=== PATIENT | male | born 1980 | race Caucasian/White ===

== ENCOUNTER → 2021-07-28 08:30 | Outpatient (BNVA) | payer OTHER, SELFPAY | PROVIDERS: PCP Nurse Practitioner Family; Visit Provider Nurse Practitioner Family | DX: R53.83 Other fatigue (principal); Z13.6 Encounter for screening for cardiovascular disorders; Z79.899 Other long term (current) drug therapy; E55.9 Vitamin D deficiency, unspecified | CPT/HCPCS: 80053; 80061; 81003; 82306; 83036; 83721; 84439; 84443; 85025 ==

== ENCOUNTER → 2022-03-22 08:26 | Outpatient (BNVA) | payer OTHER, SELFPAY | PROVIDERS: PCP Nurse Practitioner Family; Visit Provider Nurse Practitioner Family | DX: S62.501A Fracture of unspecified phalanx of right thumb, initial encounter for closed fracture (principal); X58.XXXA Exposure to other specified factors, initial encounter | CPT/HCPCS: 73120 ==

== ENCOUNTER → 2022-11-08 16:07 | Outpatient (BNVA) | payer OTHER, SELFPAY | PROVIDERS: PCP Nurse Practitioner Family; Visit Provider Family Medicine | DX: R07.9 Chest pain, unspecified (principal); I10 Essential (primary) hypertension; Z00.00 Encounter for general adult medical examination without abnormal findings | CPT/HCPCS: 80053; 80061; 84443; 85025 ==

== ENCOUNTER 2023-02-12 07:23 | Outpatient (CLI) | payer OTHER, SELFPAY ==
--- NOTE | 2023-02-12 12:00 | USCV_ITS ---
Abad Sexton Age: 42 Gender: M : 1980 Exam Date: 02/12/2023 08:00 Ordering Phys: Polo Howard MD Technologist: Jhony Rosenberg [place] [facility] [place]: chest pain BP: 110 / 64 HR: 64 Rhythm: Sinus Technical Quality: Adequate MEASUREMENTS (Male / Female) Normal Values 2D ECHO LVOT Diameter 2.1 cm LV Ejection Fraction MOD 2C 61.9 % LV Ejection Fraction 2C AL 62.2 % LA Diameter 3.4 cm LA Width 3.2 cm LA Height 5.5 cm RA Width 2.7 cm RA Height 5.6 cm Aorta at Sinotubular Diameter 2.5 cm IVC Diameter 1.8 cm M-MODE Aortic Annulus Diameter 2.6 cm LA Ao Ratio MM 1.3 MV E Point Septal Separation 0.5 cm DOPPLER AV Peak Velocity 131.3 cm/s LVOT Peak Velocity 97.0 cm/s AV Area Cont Eq vti 2.6 cm squared AV Area Cont Eq pk 2.5 cm squared MV Peak Velocity 81.0 cm/s MV Area PHT 5.1 cm squared Mitral E to A Ratio 1.1 MV E' Velocity 44.0 cm/s Mitral E to MV E' Ratio 6.8 Mitral E to LV E' Lateral Ratio 5.6 Mitral E to LV E' Septal Ratio 8.6 TR Peak Velocity 225.3 cm/s TR Peak Gradient 20.3 mmHg TR Mean Velocity 175.9 cm/s TR Mean Gradient 12.9 mmHg TR Velocity Time Integral 56.7 cm Right Atrial Pressure 3.0 mmHg Pulmonary Artery Systolic Pressu 23.3 mmHg PV Peak Velocity 110.3 cm/s RV Acceleration Time 0.1 s RV Ejection Time 0.3 s RV AcT/ET 0.3 FINDINGS Left Ventricle Left ventricle is normal in size. LV systolic function is normal with EF of 60 to 65%. No regional wall motion abnormalities are seen. Diastolic function is normal Right Ventricle Normal in size and function Right Atrium Normal in size Left Atrium Normal in size Mitral Valve Structurally normal mitral valve. Mild mitral regurgitation. Aortic Valve Structurally normal aortic valve. No significant stenosis or regurgitation. Tricuspid Valve Mild tricuspid regurgitation. Insufficient TR jet to calculate RVSP. Pulmonic Valve Not well-visualized. Pericardium Normal Aorta Normal in size IVC Appears to be normal CONCLUSIONS LV systolic function is normal with EF of 60 to 65%. Diastolic function is normal. Mild mitral regurgitation Mild tricuspid regurgitation No comparison studies are available Antonio Lambert MD (Electronically Signed) Final Date: 16 Feb 2023 14:33 S
== END 2023-02-12 07:24 | disposition home or self-care (01) ==
LOC: RAD 07:27
PROVIDERS: PCP Family Medicine; Visit Provider Family Medicine
DX: R07.9 Chest pain, unspecified (principal); I08.1 Rheumatic disorders of both mitral and tricuspid valves
CPT/HCPCS: 93306

== ENCOUNTER 2023-02-13 11:42 | Outpatient (CLI) | payer OTHER, SELFPAY ==
--- NOTE | 2023-02-13 | ECG_ITS ---
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 Interpretive Statements NAME OF STUDY: TREADMILL STRESS TEST INDICATION: [Shortness of Breath] EXERCISE DATA: The patient was exercised by Tawanda protocol. Baseline heart rate was 70 beats per minute. Baseline blood pressure was 116/72 millimeters of mercury. Maximum predicted heart rate was 176 bpm. Maximum heart rate achieved was 176 which was 100% of the maximum predicted heart rate. Maximum blood pressure was 179/76 millimeters of mercury. Total exercise time was 10 minutes 56 seconds. Maximum METs achieved was 13.5. The reason for ending the test was maximal effort achieved. The patient complained of shortness of breath during the stress test, which then resolved at the end of the test. ELECTROCARDIOGRAM: BASELINE: Showed sinus rhythm, normal axis, no significant ST-T changes at the baseline noted. [] EXERCISE: At the peak exercise level, [] No significant ST-T changes suggestive of ischemia noted. [] RECOVERY: During the recovery period, heart rate dropped appropriately. No significant ST-T changes in the recovery suggestive of ischemia noted. [] CONCLUSION: 1. Exercise capacity excellent 2. Heart rate response was appropriate. 3. Blood pressure response was appropriate. 4. Symptoms not suggestive of ischemia. 5. Stress test negative for ischemia. Electronically Signed On 02-14-2023 13:17:15 CDT by Antonio Lambert M.D. [email or web address]
[2023-02-13 12:01] VITALS: BMI 28.6
[2023-02-13 12:55] VITALS: BP 133/68; PULSE 90
== END 2023-02-13 11:43 | disposition home or self-care (01) ==
LOC: CDL 11:43
PROVIDERS: PCP Family Medicine; Visit Provider Family Medicine
DX: R07.9 Chest pain, unspecified (principal); R06.02 Shortness of breath
CPT/HCPCS: 93017

== ENCOUNTER → 2023-02-14 12:25 | Outpatient (BNVA) | payer OTHER, SELFPAY | PROVIDERS: PCP Family Medicine; Visit Provider Internal Medicine | DX: R07.9 Chest pain, unspecified (principal); I10 Essential (primary) hypertension; E78.1 Pure hyperglyceridemia; R94.31 Abnormal electrocardiogram [ECG] [EKG]; Z87.891 Personal history of nicotine dependence | CPT/HCPCS: 93005; 99204 ==

== ENCOUNTER → 2023-09-19 13:23 | Outpatient (BNVA) | payer OTHER, SELFPAY | PROVIDERS: PCP Family Medicine; Visit Provider Nurse Practitioner Family | DX: R07.89 Other chest pain (principal); I10 Essential (primary) hypertension; E78.1 Pure hyperglyceridemia; R68.89 Other general symptoms and signs; R06.09 Other forms of dyspnea; Z82.49 Family history of ischemic heart disease and other diseases of the circulatory system; Z87.891 Personal history of nicotine dependence; Z79.82 Long term (current) use of aspirin | CPT/HCPCS: 36415; 80048; 80061; 85025; 85610; 99214 ==

== ENCOUNTER 2023-11-12 05:59 | Outpatient (CLI) | payer OTHER, SELFPAY ==
[2023-11-12] MEDS: diphenhydrAMINE 50 mg Capsule PO (06:20)
[2023-11-12 06:21] LABS: Basophils # 0.1 10^3/uL (0.0-0.1); Basophils % 0.5 %; Eosinophils # 0.1 10^3/uL (0.0-0.8); Eosinophils % 1.4 %; Hematocrit 45.8 % (37-53); Lymphocytes # 3.3 10^3/uL (0.8-4.8); Lymphocytes % 34.8 %; Mean Corpuscular HGB Conc 32.5 g/dL (30-55); Mean Corpuscular Hemoglobin 29.3 pg (27-33); Mean Platelet Volume 10.3 fL (7.4-10.4); Monocytes # 0.5 10^3/uL (0.2-0.9); Monocytes % 5.4 %; Neutrophils % 57.8 %; Nucleated Red Blood Cells % 0 %; Platelet Count 341 10^3/cmm (157-399); Red Blood Count 5.09 10^6/uL (3.85-5.65); Red Cell Distribution Width 12.5 % (12.1-15.1); White Blood Count 9.34 10^3/uL (3.29-11.43)
[2023-11-12 06:26] VITALS: BP 127/80; PULSE 56; RESP 18; TEMP 36.8; O2SAT 97; BMI 30.3
[2023-11-12 06:40] LABS: Anion Gap 14.6 (5-19); Blood Urea Nitrogen 13 mg/dL (6-20); Calcium 9.4 mg/dL (8.5-10.5); Carbon Dioxide 28 mmol/L (22-29); Chloride 103 mmol/L (98-107); Creatinine Clr Calc Pharmacy 107.5592; Glomerular Filtration Rate 72.4 mL/min (90-130); Glucose 112 mg/dL (65-115); Osmolality Calculated 293 mOsm/kg (285-295); Potassium 4.6 mmol/L (3.5-5.1); Sodium 141 mmol/L (136-145)
--- NOTE | 2023-11-12 07:00 | XACV_ITS ---
Exam Room: 2 Ht: 185 cm Wt: 104 kg BSA: 2.34 m2 Gender: Male : 1980 Any Known Allergies: No known allergies Exam Priority: Routine Indication(s): - Chest pain Procedure(s): Procedure Description: Diagnostic procedure Procedure Description: Left Heart Catheterization Procedure Description: Coronary Angiography Procedure Description: Pressure Wire Diagnostic Cath Status: Elective Diagnostic Findings * INDICATION: 43-year-old man with past medical history of hypertension, hyperlipidemia who has been having worsening shortness of breath and chest discomfort episodes. He had a stress test that did not show significant ischemia however given worsening symptoms, plan for coronary angiogram with possible PCI. * Left Main has no significant disease. * Circumflex has no significant disease. * Distal Right Coronary Artery: moderate 40- 50% stenosis, ZHANG: 3 flow. * Proximal Left Anterior Descending: minimal 30% stenosis, ZHANG: 3 flow. * Coronary angiography shows right dominance. Interventional Findings * PROCEDURE DETAIL: We engaged the RCA with JR4 guide catheter. IV heparin was administered to maintain anticoagulation. After normalization, IFR wire was advanced into the distal vessel. IFR of the distal RCA was obtained and was 1.0. As it was nonsignificant, pressure wire and guide catheter were removed. 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 Conclusions 1. Moderate distal RCA stenosis s/p IFR that is nonischemic. Medical therapy. 2. Normal left ventricular systolic function. Ejection fraction of 60%. Recommendations * Aggressive risk factor modification. * Outpatient cardiology follow up in 2-4 weeks. Interventional RX Recommendation: medical therapy and/or counseling Diagnostic RX Recommendation: medical therapy and/or counseling Anticoagulation: Heparin Ventriculography Ejection Fraction: 60.0 % Pressures Phase:Rest AO : 101 / 66 ( 84 ) @ 8:02:00 AM 121 / 70 ( 91 ) @ 8:08:00 AM 121 / 70 ( 91 ) @ 8:08:00 AM 111 / 76 ( 94 ) @ 8:16:00 AM LV : 135 / 0 / 24 @ 8:07:00 AM 136 / 3 / 31 @ 8:08:00 AM 135 / 4 / 30 @ 8:08:00 AM Valves Phase:DefaultPhase AV : 14.0 @ 8:23:35 AM 14.0 @ 8:23:35 AM AV Mean Gradient: 10.0 @ 8:23:35 AM 10.0 @ 8:23:35 AM Clinical Evaluation EBL: 5mL-10mL Procedural Details Procedure Consent Obtained. Pre-Procedure Time Out. Identified patient by full name and date of as verbalized by the patient/guarantor. Does the consent match the physician's order: Yes. Accurate & Complete Informed Consent: Yes. Inpatient/Outpatient History & Physical on Chart: Yes. If H&P is completed, is and addenduem needed: No; If yes, is the addendum complete: N/A. Visualize and Verify Site with Patient/Guarantor: N/A. Relevant Radiology Images available: N/A. Pre-op teaching completed and patient verbalized understanding. The risks, benefits, and alternatives of sedation and/or procedure were discussed by physician. The patient agrees to continue. Procedure started. [facility] Clinical Fraility Score: 3: Managing Well. Sales Director Indications: Worsening Angina. Chest Pain Symptom Assessment: Typical Angina Symptoms. Cardiovascular Instability: Yes, if yes, Persistant Ischemic Symptoms. Correct patient, site and procedure confirmed by cath team. Current diagnosis: Chest Pain. PERRLA. 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 Lungs clear x 5 lobes. IV Site on Arrival: 20 gauge in the left anticubital. IV Fluids: 0.9% NaCl at KVO. 0 mL infused prior to catheter finisher and inspector. Pre Procedural Pulses: bilateral posterior tibial was 3+. Pre Procedural Pulses: bilateral radial was 3+. Pre Procedural Pulses: bilateral dorsalis pedis was 3+. Oxygen started at 2liters/min via nasal canula. right groin was prepped with chloroprep then draped in the usual sterile fashion. right radial was prepped with chloroprep then draped in the usual sterile fashion. Physician notified. Baseline sample Acquired. HR: 54 BPM. Physician arrived. Physician scrubbed in. Immediate Pre-Procedure Time Out. Correct Patient: Yes; Correct Procedure: Yes; Correct Site: Yes; Correct Patient Position: Yes; Correct Supplies: Yes; Dried Flammable Prep: Yes; Blood Products Available: N/A;. Lidocaine 1% infiltrated to the right radial. Admit Source: Out Patient. Arterial access obtained. A 5 greenlandic TIG catheter in over wire. Multiple views taken of left coronary artery. Catheter redirected to the RCA. Catheter removed over the exchange wire. A 5 greenlandic Angled Pig catheter in over wire. EDP Sample taken: LV 135/0,24; HR: 55 BPM; SpO2: 99%. LV gram performed in JULIEN @ 10 mL/second for a total of 30 mL. EDP Sample taken: LV 136/3,31; HR: 57 BPM; SpO2: 99%. Pullback taken: LV 135/4,30; AO 121/70(91); Mean: 10mmHg, Peak to Peak: 14mmHg, SEP: 14sec/min; HR: 55 BPM; SpO2: 98%. Catheter removed over the exchange wire. Pigtail advanced across the LV. 6 greenlandic JR 4 guide catheter was inserted over the wire. IFR guidewire was advanced through the guide catheter to lesion in the distal RCA. Flow reserve measurements obtained, IFR spot of Distal RCA 1.0. IFR wire removed. Guide catheter out. Physician scrubbed out. A TR Band was successful obtaining hemostatsis at the Right Radial artery insertion site. Post Procedure: Pulses reassessed and unchanged. PERRLA. 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 No VTE prophylaxis required. Medication's Wasted: Heparin = 1000 u. Medication's Wasted: Other = Fentanyl 75 mcg. Medication's Wasted: Nitro = 49.8 mg. Post-op diagnosis: Moderate Distal RCA stenosis. Medication's Wasted: Lidocaine 1% = 3 mL. Total IV fluids: 50 mL. Complications: none. Estimated blood loss: 5mL-10mL. Responsiveness - Normal response to verbal stimuli; alert and oriented, PERRLA. Airway - Unaffected, no intervention required; spontaneous ventilation. Circulation: W/N/L, pulses unchanged. Nausea/Vomiting: No. Procedure completed. Patient transferred by wheelchair to 1st floor. Vital chart was stopped. Access Site Site: Right Radial artery Sheath Size: 6 Fr Hemostasis Method: TR Band Hemostasis Success: Successful Procedure Medications Start: 7:53 AM Stop: 7:53 AM Medication: Versed Amount: 1 mg Route: I.V. Start: 7:53 AM Stop: 7:53 AM Medication: Fentanyl Amount: 25 mcg Route: I.V. Start: 7:59 AM Stop: 7:59 AM Medication: Nitrogylcerin Amount: 200 mcg Route: I.A. Start: 8:00 AM Stop: 8:00 AM Medication: Heparin Amount: 5000 units Route: I.V. Start: 8:08 AM Stop: 8:08 AM Medication: Heparin Amount: 5000 units Route: I.V. Start: 8:12 AM Stop: 8:12 AM Medication: Versed Amount: 1 mg Route: I.V. I, the attending physician, have reviewed and verified all procedure medications. Yes, all medications given per verbal order History/Risk Factors Hypertension: Yes Dyslipidemia: Yes Peripheral Arterial Disease (PAD): No Myocardial Infarction (TX): No Obesity: No Renal Disease: No Tobacco Use: Former Prior Interventions PCI: No CABG: No Valve Surgery: No Report Signatures Finalized by Antonio Lambert MD on 11/18/2023 11:15 AM
--- NOTE | 2023-11-12 07:52 | W.PM.OPSFHP ---
Same Day Surgery H&P Indication for Procedure/HPI DATE OF PROCEDURE: November 12, 2023 CHIEF COMPLAINT/INDICATIONFOR SURGICAL PROCEDURE: Worsening angina PREOP DIAGNOSIS: Worsening angina PLANNED PROCEDURE: Operation Date: 11/12/23 07:00 Proposed Procedures p [facility] w/w/o 71843 ,E78.1,R07.9,R68.89,R06.09,Z82.49(Left) - Antonio Lambert M.D Possible percutaneous coronary intervention 43-year-old man with past medical history of hypertension, hyperlipidemia who has been having worsening shortness of breath and chest discomfort episodes. He had a stress test that did not show significant ischemia however given worsening symptoms, plan for coronary angiogram with possible PCI. Medications/Allergies* Home Medications Medication Instructions Recorded Confirmed Type Krill Oil PO 02/14/23 09/19/23 History Los Red PO 02/14/23 09/19/23 History Vitamin Gummie PO 02/14/23 09/19/23 History [id number]-[id number] 250 1 tab PO Q6H PRN Headache 02/14/23 11/09/23 History mg-250 mg-65 mg tablet (Excedrin Extra Strength) Allergies/Adverse Reactions Allergy/AdvReac Type Severity Reaction Status Date / Time No Known Allergies Allergy Verified 11/09/23 07:49 Current Medications: Generic Name Dose Route Start Last Admin Trade Name Freq PRN Reason Stop Dose Admin Sodium Chloride 1,000 mls @ 50 mls/hr 11/12/23 06:00 11/12/23 06:32 Sodium Chloride 0.9% IV 11/13/23 01:59 Not Given .Q20H ONE Pertinent History/Comorbid Conditions* Medical History (Updated 09/19/23 @ 14:28 by VIJAYA Castañeda) Leg cramps Hypertriglyceridemia Vitamin D deficiency Fatigue Hypertension screen Medication management Family History (Updated 09/19/23 @ 14:01 by VIJAYA Castañeda) Grandfather, age 85 CAD (coronary artery disease) Grandfather, Onset Age: 34 Father stent 6 yrs ago Brother, Onset Age: 47 Acute myocardial infarction Father Brother, Onset Age: 47 Atrial fibrillation Grandfather Hyperlipidemia Mother, Onset Age: 30 Family history of premature coronary artery disease Grandfather Father Brother Carotid artery disease Grandfather stent Hypertension Mother Social History Smoking and tobacco/nicotine status: former use of tobacco/nicotine Pertinent Exam Findings alert, oriented x 3, clear to auscultation bilaterally and regular rate & rhythm Conscious Sedation Assessment PATIENT ASSESSED PRIOR TO SEDATION, WITH NO CHANGE NOTED: Yes AIRWAY EVAL/ANESTHESIA PLAN: normal airway, ASA III, Local Anesthesia, Risks, benefits & alternatives of sedation and/or procedure discussed and Patient agrees to continue as planned ADDITIONAL INFORMATION: Moderate sedation Recommendations Surgery/Procedure today (Left heart cath with possible percutaneous coronary intervention) Coding Level of Care Code Acute Code for [facility]
--- NOTE | 2023-11-12 08:48 | PC.NURSE ---
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
[2023-11-12 09:16] VITALS: BP 118/47; PULSE 53; RESP 15; TEMP 36.8; O2SAT 96
[2023-11-12 10:20] VITALS: BP 108/68; PULSE 54; RESP 15
[2023-11-12 13:16] VITALS: BP 110/64; PULSE 59; RESP 20
[2023-11-12 15:09] VITALS: BP 108/65; PULSE 60; RESP 16; O2SAT 97
--- NOTE | 2023-11-12 16:18 | PC.NURSE ---
Patient presented to [facility] with a right radial TR-band. No hematoma noted. Air is removed from the TR-band at: 2ml's at 1048, 2ml's at 1124, 2ml's at 1150, 2ml's at 1230, 2ml's at 1300, 2ml's at 1320, 3ml's at 1343, 2ml's at 1403. TR-band is removed at 1438 and 2 x 2 and tegaderm dressing is applied. Patient tolerated well.
== END 2023-11-12 15:35 | disposition home or self-care (01) ==
LOC: CCL 06:00 → CSU 08:46
PROVIDERS: Visit Provider Internal Medicine
DX: I25.10 Atherosclerotic heart disease of native coronary artery without angina pectoris (principal); I10 Essential (primary) hypertension; E78.5 Hyperlipidemia, unspecified; Z87.891 Personal history of nicotine dependence
CPT/HCPCS: 36415; 80048; 85025; 93458; 93571; 96365; 99152; 99153; C1769; C1887; C1894; J1644; J2250; J3010; J3490; J7030; Q0163; Q9967

== ENCOUNTER → 2023-11-16 11:06 | Outpatient (BNVA) | payer OTHER, SELFPAY | PROVIDERS: PCP Nurse Practitioner Family; Visit Provider Nurse Practitioner Family | DX: I10 Essential (primary) hypertension (principal); E78.1 Pure hyperglyceridemia; E55.9 Vitamin D deficiency, unspecified; Z79.899 Other long term (current) drug therapy | CPT/HCPCS: 80053; 81003; 82306; 83036; 84439; 84443; 84481 ==

== ENCOUNTER → 2024-03-25 10:02 | Outpatient (BNVA) | payer OTHER, SELFPAY | PROVIDERS: PCP Nurse Practitioner Family; Visit Provider Nurse Practitioner Family | DX: E78.1 Pure hyperglyceridemia (principal); I10 Essential (primary) hypertension | CPT/HCPCS: 80053; 80061 ==

== ENCOUNTER → 2024-03-26 11:55 | Outpatient (BNVA) | payer OTHER, SELFPAY | PROVIDERS: PCP Nurse Practitioner Family; Visit Provider Nurse Practitioner Family | DX: E87.6 Hypokalemia (principal) | CPT/HCPCS: 80048 ==

== ENCOUNTER → 2024-11-04 08:25 | Outpatient (BNVA) | payer OTHER, SELFPAY | PROVIDERS: PCP Nurse Practitioner Family; Visit Provider Nurse Practitioner Family | DX: E78.1 Pure hyperglyceridemia (principal); E78.01 Familial hypercholesterolemia; E55.9 Vitamin D deficiency, unspecified; I10 Essential (primary) hypertension; Z79.899 Other long term (current) drug therapy; Z12.5 Encounter for screening for malignant neoplasm of prostate; Z80.42 Family history of malignant neoplasm of prostate; D64.9 Anemia, unspecified | CPT/HCPCS: 80053; 80061; 81003; 82306; 83036; 84443; 85025; G0103 ==

== ENCOUNTER → 2024-11-06 15:44 | Outpatient (BNVA) | payer OTHER, SELFPAY | PROVIDERS: PCP Nurse Practitioner Family; Visit Provider Nurse Practitioner Family | DX: D64.9 Anemia, unspecified (principal) | CPT/HCPCS: 83550 ==

== ENCOUNTER → 2025-07-01 08:40 | Outpatient (BNVA) | payer OTHER, SELFPAY | PROVIDERS: PCP Nurse Practitioner Family; Visit Provider Nurse Practitioner Family | DX: G56.20 Lesion of ulnar nerve, unspecified upper limb (principal); M77.8 Other enthesopathies, not elsewhere classified | CPT/HCPCS: 73080 ==

== ENCOUNTER → 2025-09-22 10:11 | Outpatient (BNVA) | payer OTHER, SELFPAY | PROVIDERS: PCP Nurse Practitioner Family; Visit Provider Physician Assistant | DX: G56.03 Carpal tunnel syndrome, bilateral upper limbs (principal); G56.21 Lesion of ulnar nerve, right upper limb | CPT/HCPCS: 73080 ==